=== PATIENT | male | born 1970 | race Caucasian/White ===

== ENCOUNTER 2018-10-02 16:00 | Outpatient (CLI) | payer OTHER | END 2018-10-02 16:01 | disposition home or self-care (01) | LOC: SLEEPLAB 16:00 | PROVIDERS: ATTEND Internal Medicine Critical Care Medicine | DX: G47.33 Obstructive sleep apnea (adult) (pediatric) (principal); E66.9 Obesity, unspecified; Z68.42 Body mass index [BMI] 45.0-49.9, adult | CPT/HCPCS: 95806 ==

== ENCOUNTER 2018-12-02 20:30 | Outpatient (CLI) | payer OTHER | END 2018-12-02 20:31 | disposition home or self-care (01) | LOC: SLEEPLAB 20:30 | PROVIDERS: ATTEND Internal Medicine Critical Care Medicine | DX: G47.33 Obstructive sleep apnea (adult) (pediatric) (principal); E66.9 Obesity, unspecified | CPT/HCPCS: 95811 ==

== ENCOUNTER 2018-12-18 07:22 | Outpatient (CLI) | payer OTHER ==
--- NOTE | 2018-12-18 09:34 | CT ---
CT TEMPORAL BONES NONCONTRAST: DATE: 12/18/2018 HISTORY: 48-year-old male with bilateral conductive hearing loss, right worse than left. COMPARISON: None available FINDINGS: RIGHT: Right mastoidectomy defect. Osseous septum between the external auditory canal and the mastoidectomy defect is partially intact, and therefore this was probably originally a wall up mastoidectomy. However, this osseous septum has multiple defects, presumably due to erosions, and therefore, in effe ct, this is currently a wall down mastoidectomy, with communication between the external auditory canal and mastoidectomy defect and middle ear cavity. All of the right ossicles are absent. There is a TORP in place, with medial portion at the oval windo w. However, there is no tympanic membrane. There is a large amount of soft tissue density mass-like material filling the entire epitympanum, most of the mesotympanum, and most or all of the hypotympanu m. This mass has lobular margins, and it mildly scallops the cochlear promontory, making it likely to be a cholesteatoma rather than just inflammatory debris. It surrounds the tympanic segment of the facial nerve. It completely surrounds the TORP. Tegmen tympani and tegmen mastoideum demonstrate no obvious, large defects. No definite fistulous connection to inner ear structures identified. No morphologic abnormality of IA C, cochlea, vestibule, vestibular aqueduct, semicircular canals, carotid canal, or jugular bulb. LEFT: Smaller amount of soft tissue density material in the left middle ear cavity compared to the right. S mall soft tissue density material in Prussak's sac space without erosion of the scutum, and without erosion or displacement of left ossicles. Left ossicles are intact. Soft tissue density material part ially fills much of the mastoid antrum. Small amount of such material abuts manubrium of malleolus and long process of incus (as well as head of malleus and body of the incus at Prussak's space), and abuts the crura of stapes. Left tympanic membrane is not visualized, and is presumably either very retracted or as a large perforation. Soft tissue density fills sinus tympani and facial recess. All o f the left mastoid air cells are opacified. No morphologic abnormality identified involving facial nerve canal, IAC, cochlea, vestibule, vestibul ar aqueduct, semicircular canals, carotid canal, or jugular bulb. IMPRESSION: 1. Status post right mastoidectomy. See above comments. 2. Right-sided TORP (total ossicular replacement prosthesis). 3. Large amount of soft tissue density material within the right mastoidectomy cavity, and which comp letely surrounds the TORP, is suspicious for recurrent or residual cholesteatoma. 4. In the contralateral left middle ear cavity, there are smaller amounts of scattered soft tissue de nsity material, which is nonspecific. 5. Left tympanic membrane is either severely retracted or has a large perforation.
== END 2018-12-18 07:23 | disposition home or self-care (01) ==
LOC: CT 07:22
PROVIDERS: ATTEND Student in an Organized Health Care Education/Training Program
DX: H90.2 Conductive hearing loss, unspecified (principal); H74.92 Unspecified disorder of left middle ear and mastoid; H74.91 Unspecified disorder of right middle ear and mastoid; Z98.890 Other specified postprocedural states
CPT/HCPCS: 70480

== ENCOUNTER 2019-07-18 13:19 | Outpatient (CLI) | payer OTHER ==
--- NOTE | 2019-07-18 16:47 | CT ---
CT abdomen and pelvis without and with IV contrast HISTORY: Hematuria. FINDINGS: Each renal collecting system, ureter, and urinary bladder are decompressed without stone ev ident. No filling defects on the delayed images. Lung bases are clear. Low-density adenomas involve each adrenal gland, measuring up to 2.4 cm on the right and 1.2 cm on the left. A 0.5 cm cysts is present within the posterior cortex of the left kidney. 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 Urinary bl adder is unremarkable. No evidence of bowel obstruction. Liver and spleen are unremarkable. Small nonspecific dystrophic sandrine cification is present within the left lower quadrant mesenteric fat. Degenerative changes throughout the lumbar spine with posterior disc bulge at the L4-5 level. IMPRESSION : No CT abnormalities to explain hematuria. Incidental adrenal and renal lesions as detailed above.
== END 2019-07-18 13:20 | disposition home or self-care (01) ==
LOC: SCSCT 13:19
PROVIDERS: ATTEND Physician Assistant
DX: R31.0 Gross hematuria (principal)
CPT/HCPCS: 74178

== ENCOUNTER 2021-08-22 15:35 | Outpatient (CLI) | payer BC | END 2021-08-22 15:36 | disposition home or self-care (01) | LOC: CTENTCT 15:35 | PROVIDERS: ATTEND Otolaryngology Plastic Surgery within the Head & Neck | DX: H71.92 Unspecified cholesteatoma, left ear (principal) | CPT/HCPCS: 70480 ==

== ENCOUNTER 2022-09-19 08:58 | Inpatient (IN) | payer BC ==
[2022-09-19] MEDS ORDERED: Iopamidol-370 76% 500 ML MDV (1 ML CHARGE) ONE (09:35)
[2022-09-19] MEDS ORDERED: niCARdipine 25 MG/10 ML SDV ONE (09:41)
[2022-09-19 09:49] LABS: #Basophils 0.1 thou/uL (0.0-0.2); #Eosinphils 0.1 thou/uL (0.0-0.7); #Neutrophils 8.7 thou/uL (1.40-6.50); %Basophils 0.4 % (0.0-1.0); %Eosinophils 0.7 % (0.0-10.0); %Lymphocytes 22.7 % (21.0-51.0); %Monocytes 7.7 % (0.0-10.0); %Neutrophils 68.2 % (42.0-75.0); Hematocrit 54.8 % (42.0-52.0); Hemoglobin 17.8 g/dL (14.0-18.0); Mean Corpuscular HGB CONC 32.5 g/dL (32.0-36.0); Mean Corpuscular Hemoglobin 28.4 pg (27.0-31.0); Mean Corpuscular Volume 87.4 fl (78.0-98.0); Mean Platelet Volume 10.7 fL (7.4-10.4); Platelet Count 335 10x3/uL (130-400); RBC Distribution Width 12.5 % (11.5-14.5); Red Blood Cell (RBC) Count 6.27 mill/uL (4.70-6.10); White Blood Cell (WBC) Count 12.7 10x3/uL (4.8-10.8)
[2022-09-19] MEDS ORDERED: Aspirin Chewable 81 MG TAB ONE (09:53)
[2022-09-19 10:03] LABS: INR-International Normal Ratio 0.9; Prothrombin Time 12.4 sec (12.0-14.7)
[2022-09-19 10:04] LABS: Actual Bicarbonate (HCO3v) 29.2 mEq/L (22-28); Base Excess 2.9 mEq/L (-2.0 to +3.0); Calcium, Ionized (venous) 1.13 mmol/L (1.16-1.32); Chloride (VBG) 98 mmol/L (98-106); Hematocrit-VBG 52 % (42.0-52.0); Hemoglobin (Hb) 17.6 g/dL (13.1-17.2); Potassium (VBG) 3.98 mmol/L (3.70-5.30); Sodium 134.4 mmol/L (133-146); pH (venous) 7.385 (7.32-7.43)
[2022-09-19 10:41] LABS: Troponin I Less than 0.010 ng/mL (< 0.028)
[2022-09-19] MEDS ORDERED: Ondansetron PF 4 MG/2 ML Vial ONE ×3 (10:57→11:01)
[2022-09-19 10:59] LABS: Bacteria/HPF None Seen HPF (None Seen); Bilirubin Negative (Negative); Blood, Urine 1+ (Negative); CAUTI Indications for Culture Dysuria,urgency,freq; Clarity Clear (Clear); Glucose, Urine (Dipstick) Greater than 1000 mg/dL (Negative); Ketone, Urine Negative (Negative); Leukocyte Negative Leu/uL (Negative); Nitrite Negative (Negative); Protein, Urine (Dipstick) 30 mg/dL (Neg-Trace); Specific Gravity, Urine 1.037 (1.002-1.036); Squamous Epithelial 0-3 HPF (0-3); Urobilinogen Normal mg/dL (Less than 2); WBC/HPF 0-3 HPF (0-3)
[2022-09-19 11:03] LABS: Urine Culture Reflex No No
[2022-09-19 11:26] LABS: Acetaminophen Less than 10 mcg/mL (10.0-30.0); Alcohol Less than 10.0 mg/dL (Less than 10); Salicylate Less than 8.0 mg/dL (15.0-30.0)
[2022-09-19 11:27] LABS: Albumin 3.9 g/dL (3.5-5.0); Alkaline Phosphatase 87 U/L (40-110); Anion Gap 15 mmol/L (10-20); BUN (Urea Nitrogen) 17 mg/dL (8.4-25.7); Bilirubin, Total 0.5 mg/dL (0.2-1.2); Calc. Creatinine Clearance 0 mL/min (70-130); Calcium 10.4 mg/dL (7.6-10.4); Carbon Dioxide 27 mmol/L (22-29); Chloride 97 mmol/L (98-107); Estimated GFR 54; Globulin 4.2 g/dL (2.4-3.5); Potassium 3.7 mmol/L (3.5-5.1); Protein, Total 8.1 g/dL (6.0-8.3); Sodium 135 mmol/L (136-145)
[2022-09-19 11:28] LABS: ALT (SGPT) 17 U/L (8-55); AST (SGOT) 9 U/L (5-34)
[2022-09-19 11:30] LABS: Glucose 472 mg/dL (70-105)
[2022-09-19 11:32] LABS: Amphetamine Not Detected (NotDetected); Barbiturates Screen Not Detected (NotDetected); Benzodiazepine Screen Not Detected (NotDetected); Cocaine Metabolite Screen Not Detected (NotDetected); Methadone Not Detected (NotDetected); Methamphetamine Not Detected (NotDetected); Opiate Screen Not Detected (NotDetected); Oxycodone Screen Not Detected (NotDetected); Phencyclidine (PCP) Not Detected (NotDetected); THC/Cannabinoid Screen Not Detected (NotDetected); Tricyclic Screen Not Detected (NotDetected)
[2022-09-19] MEDS ORDERED: Acetaminophen 325 MG TAB PO PRN (11:45)
[2022-09-19] MEDS ORDERED: Senokot S 8.6-50 MG TAB PO PRN (11:45)
[2022-09-19] MEDS ORDERED: Guaifenesin DM 100-10/5 ML UDCUP PO PRN (11:45)
[2022-09-19] MEDS ORDERED: Dextrose 5% in Water 1,000 ML IV PRN (11:51)
[2022-09-19] MEDS ORDERED: Dextrose 50% Abboject 50 ML SYRINGE SLOW IVP PRN (11:51)
[2022-09-19] MEDS ORDERED: Glucagon 1 MG/ML KIT IM PRN (11:51)
[2022-09-19] MEDS: Ondansetron PF 4 MG/2 ML Vial IVP PRN ×2 (13:22→21:29)
[2022-09-19] MEDS ORDERED: Insulin Regular 300 UNITS/3 ML VIAL ONE (13:27)
[2022-09-19] MEDS ORDERED: hydrALAZINE 20 MG/ML VIAL ONE (13:47)
[2022-09-19] MEDS ORDERED: hydrALAZINE 20 MG/ML VIAL SLOW IVP PRN (13:59)
[2022-09-19] MEDS ORDERED: Insulin Regular 300 UNITS/3 ML VIAL IVP SCH (14:00)
[2022-09-19] MEDS: Sodium Chloride 0.45% 1,000 ML IV SCH (14:17)
[2022-09-19] MEDS: Metoclopramide HCl 10 MG/2 ML VIAL IVP PRN (14:22)
[2022-09-19] MEDS ORDERED: niCARdipine 40MG In NaCl 40 MG/200 ML BAG IVPB SCH (14:45)
[2022-09-19] MEDS: niCARdipine 50 MG, Admixture Fee 1 EACH in Sodium Chloride 0.9% 250 ML 230 ML IV SCH ×3 (15:01→22:34)
[2022-09-19] MEDS: HumaLOG 300 UNITS/3 ML VIAL SC PRN ×2 (15:29→20:17)
[2022-09-19] MEDS ORDERED: Labetalol HCl 100 MG/20 ML VIAL ONE (16:31)
[2022-09-19] MEDS: Labetalol HCl 100 MG TAB PO SCH (20:16)
[2022-09-19] MEDS: Atorvastatin Calcium 40 MG TAB PO SCH (20:16)
[2022-09-19] MEDS: Famotidine 20 MG TAB PO SCH (20:16)
[2022-09-19] MEDS ORDERED: Insulin Glargine 30 UNITS/0.3 ML VIAL SC SCH (21:00)
[2022-09-20] MEDS: Sodium Chloride 0.45% 1,000 ML IV SCH ×4 (01:25→19:37)
[2022-09-20] MEDS: Metoclopramide HCl 10 MG/2 ML VIAL IVP PRN ×2 (01:34→12:14)
[2022-09-20 05:52] LABS: #Monocytes 1.2 thou/uL (0.11-0.59); #Neutrophils 17.1 thou/uL (1.40-6.50); %Basophils 0.1 % (0.0-1.0); %Lymphocytes 8.4 % (21.0-51.0); %Monocytes 5.8 % (0.0-10.0); %Neutrophils 85.1 % (42.0-75.0); Hematocrit 51.4 % (42.0-52.0); Hemoglobin 16.7 g/dL (14.0-18.0); Mean Corpuscular HGB CONC 32.5 g/dL (32.0-36.0); Mean Corpuscular Hemoglobin 28.2 pg (27.0-31.0); Mean Corpuscular Volume 86.8 fl (78.0-98.0); Mean Platelet Volume 10.3 fL (7.4-10.4); Platelet Count 331 10x3/uL (130-400); Red Blood Cell (RBC) Count 5.92 mill/uL (4.70-6.10); White Blood Cell (WBC) Count 20.1 10x3/uL (4.8-10.8)
[2022-09-20] MEDS: HumaLOG 300 UNITS/3 ML VIAL SC PRN ×2 (06:13→12:17)
[2022-09-20 06:28] LABS: Hemoglobin A1c 11.6 % (4.0-6.0)
[2022-09-20 07:12] LABS: Anion Gap 17 mmol/L (10-20); BUN (Urea Nitrogen) 24 mg/dL (8.4-25.7); Calcium 9.9 mg/dL (7.8-10.44); Carbon Dioxide 24 mmol/L (22-29); Cardiac Risk 4.1 (Less than 4.5); Chloride 101 mmol/L (98-107); Cholesterol 190 mg/dl (< 200 Desired); Glucose 329 mg/dL (70-105); HDL Cholesterol 46 mg/dL (>60 Neg Risk); LDL Cholesterol, Calculated 122 mg/dL; Potassium 3.4 mmol/L (3.5-5.1); Sodium 139 mmol/L (136-145); Triglycerides 109 mg/dL (Less than 150)
[2022-09-20 08:16] LABS: Calc. Creatinine Clearance 95 mL/min (70-130); Estimated GFR 48
[2022-09-20] MEDS: Labetalol HCl 100 MG TAB PO SCH ×3 (09:06→19:35)
[2022-09-20] MEDS: Famotidine 20 MG TAB PO SCH ×2 (09:06→19:35)
[2022-09-20] MEDS: Aspirin 81 mg Enteric Coated Tablet PO SCH (09:06)
[2022-09-20] MEDS ORDERED: Electrolyte Replacement Protocol 1 EACH FS ONE (09:07)
[2022-09-20] MEDS ORDERED: Electrolyte Replacement Protocol FS PRN (09:15)
[2022-09-20] MEDS ORDERED: Potassium Chloride 20 MEQ TAB PO SCH (09:15)
[2022-09-20] MEDS ORDERED: Amlodipine 10 MG TAB PO SCH (10:00)
[2022-09-20] MEDS: Potassium Chloride 20 MEQ in Premix Bag 1 BAG IVPB SCH ×2 (10:14→12:05)
[2022-09-20] MEDS: Labetalol HCl 100 MG/20 ML VIAL SLOW IVP PRN ×2 (12:11→17:26)
[2022-09-20] MEDS: Atorvastatin Calcium 40 MG TAB PO SCH (19:35)
[2022-09-20] MEDS: Insulin Glargine 30 UNITS/0.3 ML VIAL SC SCH (20:34)
[2022-09-21] MEDS: niCARdipine 50 MG, Admixture Fee 1 EACH in Sodium Chloride 0.9% 250 ML 230 ML IV SCH ×2 (00:29→08:46)
[2022-09-21 03:55] LABS: #Basophils 0.1 thou/uL (0.0-0.2); #Monocytes 1.4 thou/uL (0.11-0.59); #Neutrophils 13.6 thou/uL (1.40-6.50); %Basophils 0.3 % (0.0-1.0); %Eosinophils 0.1 % (0.0-10.0); %Lymphocytes 14.5 % (21.0-51.0); %Monocytes 7.8 % (0.0-10.0); %Neutrophils 76.8 % (42.0-75.0); Hemoglobin 16.2 g/dL (14.0-18.0); Mean Corpuscular HGB CONC 31.8 g/dL (32.0-36.0); Mean Corpuscular Hemoglobin 28.4 pg (27.0-31.0); Mean Corpuscular Volume 89.3 fl (78.0-98.0); Mean Platelet Volume 9.9 fL (7.4-10.4); Platelet Count 333 10x3/uL (130-400); RBC Distribution Width 13.2 % (11.5-14.5); Red Blood Cell (RBC) Count 5.71 mill/uL (4.70-6.10); White Blood Cell (WBC) Count 17.8 10x3/uL (4.8-10.8)
[2022-09-21] MEDS: Sodium Chloride 0.45% 1,000 ML IV SCH ×3 (03:58→17:30)
[2022-09-21 04:17] LABS: Anion Gap 13 mmol/L (10-20); BUN (Urea Nitrogen) 26 mg/dL (8.4-25.7); Calc. Creatinine Clearance 100 mL/min (70-130); Calcium 9.3 mg/dL (7.8-10.44); Carbon Dioxide 27 mmol/L (22-29); Chloride 103 mmol/L (98-107); Estimated GFR 51; Glucose 238 mg/dL (70-105); Potassium 3.9 mmol/L (3.5-5.1); Sodium 139 mmol/L (136-145)
[2022-09-21] MEDS: HumaLOG 300 UNITS/3 ML VIAL SC PRN ×2 (08:43→17:09)
[2022-09-21] MEDS: Ondansetron PF 4 MG/2 ML Vial IVP PRN (09:19)
[2022-09-21] MEDS: Labetalol HCl 100 MG TAB PO SCH (09:19)
[2022-09-21] MEDS: Aspirin 81 mg Enteric Coated Tablet PO SCH (09:20)
[2022-09-21] MEDS: Amlodipine 10 MG TAB PO SCH (09:20)
[2022-09-21] MEDS: Famotidine 20 MG TAB PO SCH ×2 (09:20→20:31)
[2022-09-21] MEDS ORDERED: Metoprolol Tartrate 50 MG TAB PO SCH (10:45)
[2022-09-21] MEDS: Atorvastatin Calcium 40 MG TAB PO SCH (20:31)
[2022-09-21] MEDS: Insulin Glargine 30 UNITS/0.3 ML VIAL SC SCH (20:31)
[2022-09-21] MEDS: Metoprolol Tartrate 50 MG TAB PO SCH (20:31)
[2022-09-22] MEDS: Sodium Chloride 0.45% 1,000 ML IV SCH ×2 (03:00→14:03)
[2022-09-22] MEDS: HumaLOG 300 UNITS/3 ML VIAL SC PRN ×3 (05:49→17:07)
[2022-09-22] MEDS: Amlodipine 10 MG TAB PO SCH (08:04)
[2022-09-22] MEDS: Metoprolol Tartrate 50 MG TAB PO SCH ×2 (08:05→23:22)
[2022-09-22] MEDS: Aspirin 81 mg Enteric Coated Tablet PO SCH (08:05)
[2022-09-22] MEDS: Famotidine 20 MG TAB PO SCH ×2 (08:05→23:21)
[2022-09-22] MEDS: hydrALAZINE 25 MG TAB PO SCH ×3 (08:05→23:22)
[2022-09-22 08:15] LABS: #Basophils 0.1 thou/uL (0.0-0.2); #Eosinphils 0.1 thou/uL (0.0-0.7); #Neutrophils 10.3 thou/uL (1.40-6.50); %Basophils 0.4 % (0.0-1.0); %Eosinophils 0.4 % (0.0-10.0); %Lymphocytes 15.7 % (21.0-51.0); %Monocytes 7.5 % (0.0-10.0); %Neutrophils 75.3 % (42.0-75.0); Hematocrit 54.4 % (42.0-52.0); Hemoglobin 17.3 g/dL (14.0-18.0); Mean Corpuscular HGB CONC 31.8 g/dL (32.0-36.0); Mean Corpuscular Hemoglobin 28.3 pg (27.0-31.0); Mean Corpuscular Volume 88.9 fl (78.0-98.0); Mean Platelet Volume 9.7 fL (7.4-10.4); Platelet Count 318 10x3/uL (130-400); RBC Distribution Width 13.1 % (11.5-14.5); Red Blood Cell (RBC) Count 6.12 mill/uL (4.70-6.10); White Blood Cell (WBC) Count 13.7 10x3/uL (4.8-10.8)
[2022-09-22 08:38] LABS: Anion Gap 12 mmol/L (10-20); BUN (Urea Nitrogen) 27 mg/dL (8.4-25.7); Calc. Creatinine Clearance 119 mL/min (70-130); Calcium 9.4 mg/dL (7.8-10.44); Carbon Dioxide 25 mmol/L (22-29); Chloride 104 mmol/L (98-107); Estimated GFR 64; Glucose 234 mg/dL (70-105); Potassium 3.8 mmol/L (3.5-5.1); Sodium 137 mmol/L (136-145)
[2022-09-22] MEDS: Atorvastatin Calcium 40 MG TAB PO SCH (23:21)
[2022-09-22] MEDS: Insulin Glargine 30 UNITS/0.3 ML VIAL SC SCH (23:22)
[2022-09-23] MEDS: Sodium Chloride 0.45% 1,000 ML IV SCH (00:13)
[2022-09-23 04:57] LABS: #Basophils 0.1 thou/uL (0.0-0.2); #Eosinphils 0.1 thou/uL (0.0-0.7); #Monocytes 1.3 thou/uL (0.11-0.59); #Neutrophils 10.7 thou/uL (1.40-6.50); %Basophils 0.4 % (0.0-1.0); %Eosinophils 0.3 % (0.0-10.0); %Lymphocytes 15.6 % (21.0-51.0); %Neutrophils 74.4 % (42.0-75.0); Hematocrit 54.3 % (42.0-52.0); Hemoglobin 16.9 g/dL (14.0-18.0); Mean Corpuscular HGB CONC 31.1 g/dL (32.0-36.0); Mean Corpuscular Hemoglobin 28.1 pg (27.0-31.0); Mean Corpuscular Volume 90.3 fl (78.0-98.0); Mean Platelet Volume 10.6 fL (7.4-10.4); Platelet Count 296 10x3/uL (130-400); RBC Distribution Width 13.1 % (11.5-14.5); Red Blood Cell (RBC) Count 6.01 mill/uL (4.70-6.10); White Blood Cell (WBC) Count 14.4 10x3/uL (4.8-10.8)
[2022-09-23] MEDS: HumaLOG 300 UNITS/3 ML VIAL SC PRN ×4 (05:11→16:34)
[2022-09-23 05:25] LABS: Anion Gap 11 mmol/L (10-20); BUN (Urea Nitrogen) 27 mg/dL (8.4-25.7); Calc. Creatinine Clearance 123 mL/min (70-130); Calcium 9.4 mg/dL (7.8-10.44); Carbon Dioxide 27 mmol/L (22-29); Chloride 105 mmol/L (98-107); Estimated GFR 67; Glucose 217 mg/dL (70-105); Potassium 4.1 mmol/L (3.5-5.1); Sodium 139 mmol/L (136-145)
[2022-09-23] MEDS: Aspirin 81 mg Enteric Coated Tablet PO SCH (08:16)
[2022-09-23] MEDS: Amlodipine 10 MG TAB PO SCH (08:16)
[2022-09-23] MEDS: Famotidine 20 MG TAB PO SCH ×2 (08:16→20:58)
[2022-09-23] MEDS: hydrALAZINE 25 MG TAB PO SCH ×3 (08:16→20:57)
[2022-09-23] MEDS: Metoprolol Tartrate 50 MG TAB PO SCH ×2 (08:17→20:58)
[2022-09-23] MEDS: Lisinopril 20 MG TAB PO SCH (08:18)
[2022-09-23] MEDS: Atorvastatin Calcium 40 MG TAB PO SCH (20:57)
[2022-09-23] MEDS: Insulin Glargine 30 UNITS/0.3 ML VIAL SC SCH (20:58)
[2022-09-24] MEDS: HumaLOG 300 UNITS/3 ML VIAL SC PRN ×4 (00:25→21:47)
[2022-09-24 05:55] LABS: #Basophils 0.1 thou/uL (0.0-0.2); #Eosinphils 0.1 thou/uL (0.0-0.7); #Monocytes 1.5 thou/uL (0.11-0.59); #Neutrophils 12.5 thou/uL (1.40-6.50); %Basophils 0.4 % (0.0-1.0); %Eosinophils 0.5 % (0.0-10.0); %Lymphocytes 11.6 % (21.0-51.0); %Monocytes 9.5 % (0.0-10.0); %Neutrophils 77.7 % (42.0-75.0); Hematocrit 52.4 % (42.0-52.0); Hemoglobin 16.5 g/dL (14.0-18.0); Mean Corpuscular HGB CONC 31.5 g/dL (32.0-36.0); Mean Corpuscular Hemoglobin 27.9 pg (27.0-31.0); Mean Corpuscular Volume 88.7 fl (78.0-98.0); Platelet Count 270 10x3/uL (130-400); RBC Distribution Width 12.8 % (11.5-14.5); Red Blood Cell (RBC) Count 5.91 mill/uL (4.70-6.10); White Blood Cell (WBC) Count 16.1 10x3/uL (4.8-10.8)
[2022-09-24 06:22] LABS: Anion Gap 12 mmol/L (10-20); BUN (Urea Nitrogen) 24 mg/dL (8.4-25.7); Calc. Creatinine Clearance 127 mL/min (70-130); Calcium 9.6 mg/dL (7.8-10.44); Carbon Dioxide 26 mmol/L (22-29); Chloride 106 mmol/L (98-107); Estimated GFR 69; Glucose 247 mg/dL (70-105); Potassium 3.8 mmol/L (3.5-5.1); Sodium 140 mmol/L (136-145)
[2022-09-24] MEDS: Amlodipine 10 MG TAB PO SCH (08:21)
[2022-09-24] MEDS: Aspirin 81 mg Enteric Coated Tablet PO SCH (08:21)
[2022-09-24] MEDS: Lisinopril 20 MG TAB PO SCH (08:22)
[2022-09-24] MEDS: Metoprolol Tartrate 50 MG TAB PO SCH ×2 (08:22→21:46)
[2022-09-24] MEDS: Famotidine 20 MG TAB PO SCH ×2 (08:22→21:46)
[2022-09-24] MEDS: hydrALAZINE 25 MG TAB PO SCH ×3 (08:22→21:46)
[2022-09-24] MEDS: Insulin Glargine 30 UNITS/0.3 ML VIAL SC SCH (21:46)
[2022-09-24] MEDS: Atorvastatin Calcium 40 MG TAB PO SCH (21:46)
[2022-09-25] MEDS: Amlodipine 10 MG TAB PO SCH (11:58)
[2022-09-25] MEDS: Aspirin 81 mg Enteric Coated Tablet PO SCH (11:58)
[2022-09-25] MEDS: Famotidine 20 MG TAB PO SCH ×2 (11:58→21:41)
[2022-09-25] MEDS: hydrALAZINE 25 MG TAB PO SCH ×3 (11:59→21:41)
[2022-09-25] MEDS: Lisinopril 20 MG TAB PO SCH (11:59)
[2022-09-25] MEDS: Metoprolol Tartrate 50 MG TAB PO SCH ×2 (11:59→21:41)
[2022-09-25] MEDS: Labetalol HCl 100 MG/20 ML VIAL SLOW IVP PRN (12:34)
[2022-09-25 12:40] VITALS: BMI 41.1
[2022-09-25] MEDS: Sodium Chloride 0.45% 1,000 ML IV SCH (18:53)
[2022-09-25] MEDS: Insulin Glargine 30 UNITS/0.3 ML VIAL SC SCH (21:38)
[2022-09-25] MEDS: Atorvastatin Calcium 40 MG TAB PO SCH (21:40)
[2022-09-26] MEDS: Labetalol HCl 100 MG/20 ML VIAL SLOW IVP PRN ×3 (00:15→17:35)
[2022-09-26] MEDS ORDERED: Labetalol HCl 100 MG/20 ML VIAL SLOW IVP SCH (02:15)
[2022-09-26] MEDS: Sodium Chloride 0.45% 1,000 ML IV SCH ×2 (05:29→21:11)
[2022-09-26] MEDS ORDERED: Ketamine 50 MG/ML (10ML VIAL) ONE (10:18)
[2022-09-26] MEDS ORDERED: Midazolam HCl 2 mg/2 ml Vial ONE (10:18)
[2022-09-26] MEDS ORDERED: Lidocaine 1% PF 5 ML VIAL ONE (10:32)
[2022-09-26] MEDS ORDERED: PROPOFOL 200 MG/20 ML VIAL ONE (10:32)
[2022-09-26] MEDS: Amlodipine 10 MG TAB PO SCH (15:43)
[2022-09-26] MEDS: Famotidine 20 MG TAB PO SCH ×2 (15:43→21:10)
[2022-09-26] MEDS: Aspirin 81 mg Enteric Coated Tablet PO SCH (15:43)
[2022-09-26] MEDS: Lisinopril 20 MG TAB PO SCH (15:44)
[2022-09-26] MEDS: hydrALAZINE 25 MG TAB PO SCH ×2 (15:44→21:10)
[2022-09-26] MEDS: Metoprolol Tartrate 50 MG TAB PO SCH ×3 (15:44→21:11)
[2022-09-26] MEDS: Atorvastatin Calcium 40 MG TAB PO SCH (21:11)
[2022-09-26] MEDS: Insulin Glargine 30 UNITS/0.3 ML VIAL SC SCH (21:11)
[2022-09-27] MEDS ORDERED: Aspirin Chewable 81 MG TAB PO SCH (09:00)
[2022-09-27] MEDS: Metoprolol Tartrate 50 MG TAB PO SCH (10:10)
[2022-09-27] MEDS ORDERED: Carvedilol 25 MG TAB PO SCH ×2 (10:15→17:00)
[2022-09-27] MEDS: Lisinopril 20 MG TAB PO SCH (10:26)
[2022-09-27] MEDS: hydrALAZINE 25 MG TAB PO SCH ×2 (10:26→14:18)
[2022-09-27] MEDS: Famotidine 20 MG TAB PO SCH (10:29)
[2022-09-27] MEDS: Amlodipine 10 MG TAB PO SCH (10:29)
[2022-09-27 11:59] VITALS: BP 142/94; TEMP 97.5
[2022-09-27] MEDS: HumaLOG 300 UNITS/3 ML VIAL SC PRN (13:35)
== END 2022-09-27 16:30 | DRG 65 ==
LOC: ERS 08:58 → CCU 11:51 → 2SE 09-22 13:36
PROVIDERS: ADMIT Hospitalist; ATTEND Hospitalist
PROC: 5A09457 Assistance with Respiratory Ventilation, 24-96 Consecutive Hours, Continuous Positive Airway Pressure (ICD-10-PCS; 2022-09-20)
PROC: 0DH63UZ Insertion of Feeding Device into Stomach, Percutaneous Approach (ICD-10-PCS; principal; 2022-09-26)
PROC: 0DB68ZX Excision of Stomach, Via Natural or Artificial Opening Endoscopic, Diagnostic (ICD-10-PCS; 2022-09-26)
DX: I63.9 Cerebral infarction, unspecified (principal); G81.91 Hemiplegia, unspecified affecting right dominant side; I16.1 Hypertensive emergency; Z68.41 Body mass index [BMI] 40.0-44.9, adult; N17.9 Acute kidney failure, unspecified; E66.01 Morbid (severe) obesity due to excess calories; G47.33 Obstructive sleep apnea (adult) (pediatric); N18.2 Chronic kidney disease, stage 2 (mild); E11.22 Type 2 diabetes mellitus with diabetic chronic kidney disease; I12.9 Hypertensive chronic kidney disease with stage 1 through stage 4 chronic kidney disease, or unspecified chronic kidney disease; E11.65 Type 2 diabetes mellitus with hyperglycemia; R29.700 NIHSS score 0; R13.12 Dysphagia, oropharyngeal phase; E78.5 Hyperlipidemia, unspecified; Z79.899 Other long term (current) drug therapy; Z98.890 Other specified postprocedural states; Z91.148 Patient's other noncompliance with medication regimen for other reason; Z82.49 Family history of ischemic heart disease and other diseases of the circulatory system; Z83.3 Family history of diabetes mellitus
CPT/HCPCS: 0042T; 36415; 36416; 70450; 70496; 70498; 70551; 71045; 74018; 80048; 80053; 80061; 80306; 80307; 81001; 82010; 82805; 83036; 84484; 85025; 85610; 85730; 88305; 88342; 93005; 93306; 96365; 96366; 96375; J0360; J1650; J1815; J2250; J2405; J2704; J2765; J3480; J7050; Q9967

== ENCOUNTER 2022-12-07 08:36 | Outpatient (CLI) | payer BC | END 2022-12-07 08:37 | disposition home or self-care (01) | LOC: RAD 08:36 | PROVIDERS: ATTEND Internal Medicine | DX: R13.12 Dysphagia, oropharyngeal phase (principal); I63.9 Cerebral infarction, unspecified | CPT/HCPCS: 74230 ==